=== PATIENT | female | born 2000 | race Caucasian/White ===

== ENCOUNTER 2019-06-20 19:28 | Emergency (ER) | payer BC, SELFPAY ==
[2019-06-20 19:29] VITALS: BP 156/90; PULSE 91; RESP 15; TEMP 37; O2SAT 99; BMI 22.1
[2019-06-20] MEDS: Tetracaine 0.5% Ophthalmic Bottle OPHTHALMIC (20:01)
[2019-06-20] MEDS: Fluorescein 1 MG STRIP 1 STRIP OPHTHALMIC (20:02)
--- NOTE | 2019-06-20 21:31 | ED.VISSUMM ---
- ER Visit Summary Date of Service: 06/20/19 Chief Complaint: Foreign body left History of Present Illness: The patient is a 19 F who is a [employer] student. She reports that last night she was taking out her left contact when it tore in half. She is been able to get the other half out. States that this morning when she woke up her eye was crusted shut with and had yellow drainage. States throughout the day she has had a scratchy pain is a 7 on 10 at worst and 2 out of 10 currently. Is worsened by nothing. Is relieved by ibuprofen. She does complain of blurred vision. She is never had anything like this before. Physical Examination: Vitals: Stable. Afebrile. General: Well-nourished and well-developed. Head: Normocephalic atraumatic. Left eye: Upper eyelid was everted for exam. There is no foreign material under this present. She has mild conjunctival injection. I do not visualize a foreign body. She had fluorescein dye undertaken and I then did visualize the half of a contact in the superior lateral portion of her eye under her eyelid. This was dragged down into the visual axis and the patient was able to remove this on her own without difficulty. I do not appreciate a full corneal abrasion following this. Neck: Supple, no lymphadenopathy. No JVD. Nontender. Cardiovascular: Regular rate and rhythm. No murmurs. Respiratory: No respiratory distress. Clear to auscultation bilaterally. Abdominal: Soft, nontender, nondistended, normal bowel sounds. No guarding, rebound, or peritoneal signs. Back: Nontender. Extremities: Nontender, no edema. Skin: Normal color, no rash. Neurologic: Alert and oriented ?3. Cranial nerves II through XII are intact. Normal strength and sensation. Psych: Normal affect. Emergency Department Course and Treatment: Patient had Cipro drops placed in her eye. She is resting comfortably. Treatment Plan: Patient will be discharged with Cipro drops. Instructed to follow-up with Dr. Yi in 4 days if not improving. She is instructed to wear her glasses and not contacts until cleared by Dr. Yi. Return to the emergency department for any worsening symptoms. Disposition: To home in improved and stable condition. Impression: 1. Contact removal left eye. This note was generated with [employer] dictation software. It may contain incorrect words, spelling, and punctuation that were not noted in review of the chart prior to signing ED Disposition - Plan for ED Patient: Disposition: Home or Assisted Living Instructions: CORNEAL INJURY, Contact Lens Referrals: Dereck Yi MD [STAFF PHYSICIAN] - 1-2 Days if not improving
[2019-06-20] MEDS: Ciprofloxacin 0.3% 2.5ml Bottle 2 DRP LEFT EYE (21:48)
== END 2019-06-20 21:50 | disposition home or self-care (01) ==
LOC: ED 20:18
PROVIDERS: Emergency Provider Emergency Medicine
DX: T15.92XA Foreign body on external eye, part unspecified, left eye, initial encounter (principal); X58.XXXA Exposure to other specified factors, initial encounter; Y93.9 Activity, unspecified; Y92.9 Unspecified place or not applicable; Y99.9 Unspecified external cause status; J45.909 Unspecified asthma, uncomplicated
CPT/HCPCS: 99283

== ENCOUNTER → 2019-12-23 11:44 | Outpatient (CLI) | payer BC, SELFPAY ==
--- NOTE | 2019-12-23 11:49 | US_ITS ---
STUDY: THYROID ULTRASOUND REASON FOR EXAM: Female, 19 years old. Hyperthyroidism TECHNIQUE: Ultrasound evaluation of the thyroid was performed with real-time and static harvey-scale imaging. COMPARISON: None. FINDINGS: RIGHT LOBE: The right lobe of the thyroid gland is mildly enlarged and measures 5.1 cm x 1.7 cm x 2.5 cm. There is a heterogeneous echotexture. There are no demonstrated solid, cystic or complex lesions. LEFT LOBE: The left lobe of the thyroid gland is slightly enlarged and measures 5 cm x 1.1 cm x 1.5 cm. There is a heterogeneous echotexture. There are no demonstrated solid, cystic or complex lesions. ISTHMUS: The isthmus measures 1.6 mm. The regional lymph nodes are normal. US/Thyroid IMPRESSION: Heterogeneously enlarged thyroid. Electronically Signed: Chris Anglin, at 14:51 EDT , Service support ,
[2019-12-23 14:01] LABS: ALB/GLOB Ratio 0.7 RATIO (0.9-2.4); AST(SGOT) 22 U/L (15-37); Alanine Aminotransfer ALT/SGPT 22 U/L (13-56); Albumin, Serum 2.9 g/dL (3.2-5.0); Alkaline Phosphatase 70 U/L (45-117); Anion Gap 3 (5-15); BUN 13 mg/dL (7-18); BUN/Creat Ratio 19.2 RATIO (10-20); Calcium,Total 8.9 mg/dL (8.5-10.1); Chloride 111 mmol/L (98-107); Creatinine, Serum 0.68 mg/dL (0.55-1.02); EST Glomerular Filtration Rate 117 mL/min (>60); Est Glom Filt Rate - Afr Amer 142 mL/min (>60); Free T3 6.1 pg/mL (2.18-3.98); Glucose 107 mg/dL (74-106); Potassium 4.3 mmol/L (3.5-5.1); Protein, Total 6.9 g/dL (6.4-8.2); Sodium Level 140 mmol/L (136-145); T4 Free Direct 3.75 ng/dL (0.76-1.46); Thyroid Stim Hormone (TSH) < 0.01 uIU/mL (0.358-3.74)
[2019-12-29 06:59] LABS: Anti-Thyroglobulin AB 3.9 IU/mL (0.0-0.9); Thyroglobulin RIA 42 ng/mL (.); Thyroid Peroxidase AB 209 IU/mL (0-34)
== END ==
DX: E05.90 Thyrotoxicosis, unspecified without thyrotoxic crisis or storm (principal); I47.1 Supraventricular tachycardia
CPT/HCPCS: 36415; 76536; 80053; 84432; 84439; 84443; 84445; 84481; 86376; 86800